=== PATIENT | female | born 1980 | race Two or more races ===

== ENCOUNTER 2020-04-02 19:36 | Emergency (ER) | payer SELFPAY ==
[~2020-04-02] VITALS: Ht 157.5 cm; Wt 68.1 kg
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
[2020-04-02 20:55] VITALS: BP 120/70
[2020-04-02] MEDS ORDERED: ACETAMINOPHEN 500 MG TABLET PO ONE (21:00)
[2020-04-02 21:04] LABS: BILIRUBIN,URINE NEGATIVE (NEG); CLARITY,URINE CLEAR; COLOR,URINE YELLOW; NITRITE,URINE NEGATIVE (NEG); PROTEIN,URINE NEGATIVE (NEG-TRACE)
[2020-04-02 21:10] LABS: BACTERIA,URINE FEW /HPF (0-FEW); SQUAMOUS EPITHELIAL CELL,UR MOD /LPF; WBC,URINE RARE /HPF (0-4)
== END 2020-04-02 21:31 | disposition short-term general hospital (02) ==
LOC: EEVIPCON 19:36 → ER 19:36
DX: T76.21XA Adult sexual abuse, suspected, initial encounter (principal); Z98.51 Tubal ligation status
CPT/HCPCS: 81001; 99285